=== PATIENT | male | born 1990 | race Caucasian/White ===

== ENCOUNTER 2016-06-04 01:13 | Emergency (ER) | payer OTHER ==
[2016-06-04 01:23] VITALS: BP 140/93
--- NOTE | 2016-06-04 01:46 | EDM.PDOC ---
ED HPI ALTERED MENTAL STATUS - General Chief Complaint: Drug or Alcohol Abuse Stated Complaint: [facility] Time Seen by Provider: 06/04/16 01:37 Source: Reports: Patient History Limitations: Reports: Intoxication - History of Present Illness INITIAL COMMENTS - FREE TEXT/NARRATIVE: History of present illness: [25-year-old male who came in by ambulance and was found down on the ice at [facility]. Initially unresponsive but in route she was given IV fluids and IV Zofran and upon arrival here he is alert oriented with no complaints of pain. Admits to drinking excessively and feeling dehydrated and is now drinking water. His cell phone on him is to return to college friend to come and get him. He has no complaints of pain. He denies being involved in any fights. He denies falling. His bank of [employer] and not on any medications and is from [facility] area.] Review of systems: As per history of present illness and below otherwise all systems reviewed and negative. Past medical history: As per history of present illness and as reviewed below otherwise noncontributory. Surgical history: As per history of present illness and as reviewed below otherwise noncontributory. Social history: No reported history of drug or alcohol abuse. Family history: As per history of present illness and as reviewed below otherwise noncontributory. Physical exam: HEENT: Atraumatic, normocephalic, pupils reactive, negative for conjunctival pallor or scleral icterus, mucous membranes moist, throat clear, neck supple, nontender, trachea midline. Lungs: Clear to auscultation, breath sounds equal bilaterally, chest nontender. Heart: S1S2, regular, negative for clicks, rubs, or JVD. Abdomen: Soft, nondistended, nontender. Negative for masses or hepatosplenomegaly. Negative for costovertebral tenderness. Pelvis: Stable nontender. Genitourinary: Deferred. Rectal: Deferred. Extremities: Atraumatic, negative for cords or calf pain. Neurovascular unremarkable. Neuro: Awake, alert, oriented. . Exam nonfocal other than slurred speech. Diagnostics: [] Therapeutics: [] Impression: [Alcohol intoxication] Plan: [He can orally rehydrate and that's all he needs at this point. He'll try to call somebody that can come and get him.] Definitive disposition and diagnosis as appropriate pending reevaluation and review of above. - Related Data Allergies/ADRs: Allergies No Known Allergies Allergy (Verified 06/04/16 01:14) Home Meds: Home Meds NK [No Known Home Meds] 06/04/16 [History] Past Medical History Musculoskeletal History: Reports: None - Infectious Disease History Infectious Disease History: Reports: Chicken pox - Past Surgical History Musculoskeletal Surgical History: Reports: Other (see below) Other Musculoskeletal Surgeries/Procedures:: Left leg surgery;bone growth removed Social & Family History - Tobacco Use Smoking Status *Q: Current Every Day Smoker Years of Tobacco use: 12 Packs/Tins Daily: 0.5 - Caffeine Use Caffeine Use: Reports: Tea - Recreational Drug Use Recreational Drug Use: Yes Drug Use in Last 12 Months: Yes Recreational Drug Type: Reports: Marijuana/Hashish Recreational Drug Use Frequency: Daily ED ROS GENERAL - Review of Systems Review Of Systems: ROS reveals no pertinent complaints other than HPI. - Physical Exam Exam: See Below Course - Vital Signs Last Recorded V/S: Last Vital Signs Temp 36.4 C 06/04/16 01:22 Pulse 81 06/04/16 01:22 Resp 16 06/04/16 01:22 BP 140/93 H 06/04/16 01:22 Pulse Ox 95 06/04/16 01:22 Departure - Departure Time of Disposition: 01:45 Disposition: Home, Self-Care 01 Condition: good Clinical Impression: Alcohol intoxication Qualifiers: Complication of substance-induced condition: uncomplicated Qualified Code(s): F10.120 - Alcohol abuse with intoxication, uncomplicated Forms: ED Department Discharge Additional Instructions: Please drink clear fluids and don't drink any more alcohol for the next 24 hours at least.
== END 2016-06-04 02:19 | disposition home or self-care (01) ==
LOC: JP.ED 01:13
DX: F10.120 Alcohol abuse with intoxication, uncomplicated (principal); F17.210 Nicotine dependence, cigarettes, uncomplicated; Z98.890 Other specified postprocedural states
CPT/HCPCS: 99284